=== PATIENT | female | born 1950 | race Caucasian/White ===

== ENCOUNTER 2017-06-23 13:37 | Emergency (ER) | payer MEDICARE, MEDICAID ==
[~2017-06-23] VITALS: Ht 157.5 cm; Wt 65.0 kg
[2017-06-23] MEDS ORDERED: PROP10TA10 PO (13:47)
[2017-06-23] MEDS ORDERED: LOSA25TA12 PO (13:47)
[2017-06-23] MEDS ORDERED: ATOR10TA69 PO (13:47)
[2017-06-23] MEDS ORDERED: QUETIAPINE FUMARATE 100MG TABLET PO STA (17:19)
[2017-06-23 18:30] VITALS: BP 151/89
== END 2017-06-23 18:47 | disposition home or self-care (01) ==
LOC: ER 13:37
DX: I10 Essential (primary) hypertension (principal); E78.00 Pure hypercholesterolemia, unspecified; E03.9 Hypothyroidism, unspecified
CPT/HCPCS: 99283

== ENCOUNTER 2018-05-22 08:54 | Inpatient (IN) | payer MEDICARE, OTHER ==
[~2018-05-22] VITALS: Ht 154.9 cm; Wt 96.2 kg
[~2018-05-22 08:54] MED LIST: ATOR10TA69 PO; LOSA25TA12 PO; PROP10TA10 PO
[2018-05-22] MEDS ORDERED: SODIUM CHLORIDE 0.9% 500 ML IV ONE (10:12)
[2018-05-22 10:41] LABS: CLARITY URINE CLOUDY (CLEAR); COLOR URINE YELLOW (YELLOW); KETONES URINE NEGATIVE (NEGATIVE); LEUKOCYTE ESTERASE URINE 2+ (NEGATIVE); NITRITE URINE NEGATIVE (NEGATIVE); OCCULT BLOOD URINE 1+ (NEGATIVE); PROTEIN URINE NEGATIVE (NEGATIVE); SPECIFIC GRAVITY URINE 1.016 (1.005-1.030); UROBILINOGEN URINE 0.2 E.U./dL (0.2-1.0)
[2018-05-22 10:41] LABS: BASOPHILS % 0.8 % (0.0-2.0); EOSINOPHILS % 10.7 % (0.0-5.0); HEMOGLOBIN. 11.6 g/dL (12.0-16.0); LYMPHOCYTES % 24.7 % (20.0-50.0); MEAN CORPUSCULAR HEMOGLOBIN 27.6 pg (28.0-32.0); MEAN CORPUSCULAR VOLUME 85.6 fL (81.0-99.0); MEAN PLATELET VOLUME 8.5 fl (7.4-10.4); NEUTROPHILS % 56.8 % (40.0-76.0); PLATELET 144 x1000/uL (130-400); RED BLOOD CELL COUNT 4.21 mill/uL (4.2-5.4); RED CELL DISTRIBUTION WIDTH 16.9 % (11.6-14.6)
[2018-05-22 10:42] LABS: CHLORIDE 108 mEq/L (98-107)
[2018-05-22 10:45] LABS: PARTIAL THROMBOPLASTIN TIME 26.9 sec (23.4-31.0); PROTHROMBIN TIME 10.2 sec (9.1-11.1)
[2018-05-22 10:54] LABS: CREATINE KINASE 39 IU/L (26-192)
[2018-05-22 10:58] LABS: CREATINE KINASE MB FRACTION < 1.0 ng/mL (0.5-3.6)
[2018-05-22] MEDS ORDERED: NYSTATIN POWDER 15GM TOP STA (11:14)
[2018-05-22] MEDS ORDERED: FUROSEMIDE 20MG/2ML VIAL IVP ONE (11:15)
[2018-05-22] MEDS ORDERED: CEFTRIAXONE 1 G PREMIX 50 ML IV ONE (11:15)
[2018-05-22] MEDS ORDERED: ONDANSETRON HCL 4MG/2ML INJ IV PRN (11:45)
[2018-05-22 16:25] VITALS: BP 135/70
[2018-05-22] MEDS ORDERED: INFLUENZA VIRUS VACCINE(AFLURIA) 0.5ML SYR IM ONE (18:45)
[2018-05-22] MEDS ORDERED: PNEUMOCOCCAL 23-VAL P-SAC VAC 0.5 ML IM ONE (18:45)
[2018-05-22] MEDS: MECLIZINE 25MG TABLET PO PRN (18:52)
[2018-05-22 20:00] VITALS: BP 121/70
[2018-05-22] MEDS: ACETAMINOPHEN 325MG TABLET PO PRN (21:23)
[2018-05-22] MEDS: AMLODIPINE 5MG TABLET PO SCH (21:24)
[2018-05-23] VITALS: BP 108/78
[2018-05-23 04:00] VITALS: BP 113/57
[2018-05-23 07:06] LABS: BASOPHILS % 1.1 % (0.0-2.0); HEMATOCRIT. 35.3 % (36.0-48.0); HEMOGLOBIN. 11.6 g/dL (12.0-16.0); LYMPHOCYTES % 27.6 % (20.0-50.0); MEAN CORPUSCULAR VOLUME 84.8 fL (81.0-99.0); MEAN PLATELET VOLUME 8.4 fl (7.4-10.4); MONOCYTES % 9.3 % (2.0-8.0); PLATELET 150 x1000/uL (130-400); RED BLOOD CELL COUNT 4.16 mill/uL (4.2-5.4); RED CELL DISTRIBUTION WIDTH 16.8 % (11.6-14.6)
[2018-05-23 08:00] VITALS: BP 128/71
[2018-05-23] MEDS: LEVOTHYROXINE SODIUM 50MCG TABLET PO SCH (09:16)
[2018-05-23] MEDS: AMLODIPINE 5MG TABLET PO SCH ×2 (09:16→20:09)
[2018-05-23] MEDS ORDERED: CEFTRIAXONE 1 G PREMIX 50 ML IV SCH (11:00)
[2018-05-23 12:00] VITALS: BP 138/73
[2018-05-23 16:00] VITALS: BP 148/69
[2018-05-23 18:41] LABS: T4 FREE 0.6 ng/dL (0.76-1.46)
[2018-05-23 20:00] VITALS: BP 124/55
[2018-05-24] VITALS: BP 117/69
[2018-05-24 04:00] VITALS: BP 118/68
[2018-05-24] MEDS: ACETAMINOPHEN 325MG TABLET PO PRN ×2 (06:24→22:42)
[2018-05-24 06:57] LABS: EOSINOPHILS % 6.7 % (0.0-5.0); HEMATOCRIT. 36.6 % (36.0-48.0); LYMPHOCYTES % 25.3 % (20.0-50.0); MEAN CORPUSCULAR HEMOGLOBIN 27.8 pg (28.0-32.0); MEAN CORPUSCULAR VOLUME 84.7 fL (81.0-99.0); MEAN PLATELET VOLUME 8.5 fl (7.4-10.4); PLATELET 177 x1000/uL (130-400); RED BLOOD CELL COUNT 4.32 mill/uL (4.2-5.4); RED CELL DISTRIBUTION WIDTH 16.5 % (11.6-14.6)
[2018-05-24 08:00] VITALS: BP 142/82
[2018-05-24] MEDS: LEVOTHYROXINE SODIUM 50MCG TABLET PO SCH (08:46)
[2018-05-24] MEDS: AMLODIPINE 5MG TABLET PO SCH ×2 (08:47→20:55)
[2018-05-24] MEDS: CEFTRIAXONE 1 G PREMIX 50 ML IV SCH (11:36)
[2018-05-24 12:00] VITALS: BP 128/59
[2018-05-24 16:00] VITALS: BP 134/53
[2018-05-24 20:00] VITALS: BP 131/61
[2018-05-24] MEDS: MECLIZINE 25MG TABLET PO PRN (22:42)
[2018-05-25] VITALS: BP 132/67
[2018-05-25 04:00] VITALS: BP 114/73
[2018-05-25 08:00] VITALS: BP 129/78
[2018-05-25] MEDS: LEVOTHYROXINE SODIUM 50MCG TABLET PO SCH (09:04)
[2018-05-25] MEDS: AMLODIPINE 5MG TABLET PO SCH ×2 (09:05→21:44)
[2018-05-25] MEDS: CEFTRIAXONE 1 G PREMIX 50 ML IV SCH (10:47)
[2018-05-25 12:00] VITALS: BP 125/73
[2018-05-25] MEDS ORDERED: ENOXAPARIN 30MG/0.3ML SYR SUBCUT SCH (14:15)
[2018-05-25 16:43] LABS: BASOPHILS % 0.8 % (0.0-2.0); EOSINOPHILS % 7.8 % (0.0-5.0); HEMATOCRIT. 37.3 % (36.0-48.0); HEMOGLOBIN. 12.4 g/dL (12.0-16.0); LYMPHOCYTES % 26.1 % (20.0-50.0); MEAN CORPUSCULAR HEMOGLOBIN 28.1 pg (28.0-32.0); MEAN CORPUSCULAR VOLUME 84.9 fL (81.0-99.0); MEAN PLATELET VOLUME 8.3 fl (7.4-10.4); MONOCYTES % 8.5 % (2.0-8.0); NEUTROPHILS % 56.8 % (40.0-76.0); PLATELET 174 x1000/uL (130-400); RED CELL DISTRIBUTION WIDTH 16.8 % (11.6-14.6)
[2018-05-25 20:00] VITALS: BP 123/74
[2018-05-25] MEDS: HYDROCORTISONE 1% RECTAL CREAM 30GM PR SCH (21:00)
[2018-05-25] MEDS: MECLIZINE 25MG TABLET PO PRN (21:44)
[2018-05-25] MEDS: ACETAMINOPHEN 325MG TABLET PO PRN (21:45)
[2018-05-25] MEDS: NITROFURANTOIN 100MG M/M CAPSULE PO SCH (21:45)
[2018-05-26 00:08] VITALS: BP 139/72
[2018-05-26 04:00] VITALS: BP 128/76
[2018-05-26] MEDS: ENOXAPARIN 30MG/0.3ML SYR SUBCUT SCH ×2 (06:25→18:13)
[2018-05-26 08:00] VITALS: BP 126/75
[2018-05-26 08:21] LABS: EOSINOPHILS % 10.3 % (0.0-5.0); HEMATOCRIT. 36.5 % (36.0-48.0); HEMOGLOBIN. 12.1 g/dL (12.0-16.0); MEAN CORPUSCULAR HEMOGLOBIN 28.1 pg (28.0-32.0); MEAN CORPUSCULAR VOLUME 84.5 fL (81.0-99.0); MEAN PLATELET VOLUME 8.2 fl (7.4-10.4); NEUTROPHILS % 49.7 % (40.0-76.0); PLATELET 184 x1000/uL (130-400); RED BLOOD CELL COUNT 4.32 mill/uL (4.2-5.4); RED CELL DISTRIBUTION WIDTH 16.8 % (11.6-14.6)
[2018-05-26] MEDS: NITROFURANTOIN 100MG M/M CAPSULE PO SCH ×2 (08:50→20:14)
[2018-05-26] MEDS: LEVOTHYROXINE SODIUM 50MCG TABLET PO SCH (08:50)
[2018-05-26] MEDS: HYDROCORTISONE 1% RECTAL CREAM 30GM PR SCH ×2 (08:50→20:14)
[2018-05-26] MEDS: AMLODIPINE 5MG TABLET PO SCH ×2 (08:50→20:14)
[2018-05-26] MEDS: CEFTRIAXONE 1,000 MG in DEXTROSE 5% WATER 50 ML IV SCH (11:00)
[2018-05-26 12:00] VITALS: BP 131/77
[2018-05-26] MEDS: CLOTRIMAZOLE 1% CREAM 30GM TOP SCH ×2 (15:58→22:47)
[2018-05-26 16:00] VITALS: BP 135/76
[2018-05-26 20:00] VITALS: BP 134/73
[2018-05-26] MEDS: MECLIZINE 25MG TABLET PO PRN (22:07)
[2018-05-26] MEDS: ACETAMINOPHEN 325MG TABLET PO PRN (22:47)
[2018-05-27] VITALS: BP 148/70
[2018-05-27 04:00] VITALS: BP 118/78
[2018-05-27] MEDS: ENOXAPARIN 30MG/0.3ML SYR SUBCUT SCH ×2 (05:37→18:37)
[2018-05-27 07:18] LABS: BASOPHILS % 1.3 % (0.0-2.0); EOSINOPHILS % 9.4 % (0.0-5.0); HEMATOCRIT. 33.7 % (36.0-48.0); HEMOGLOBIN. 11.1 g/dL (12.0-16.0); LYMPHOCYTES % 29.1 % (20.0-50.0); MEAN CORPUSCULAR HEMOGLOBIN 28.1 pg (28.0-32.0); MEAN CORPUSCULAR VOLUME 85.3 fL (81.0-99.0); MEAN PLATELET VOLUME 8.3 fl (7.4-10.4); MONOCYTES % 11.7 % (2.0-8.0); NEUTROPHILS % 48.5 % (40.0-76.0); PLATELET 142 x1000/uL (130-400); RED BLOOD CELL COUNT 3.95 mill/uL (4.2-5.4); RED CELL DISTRIBUTION WIDTH 16.7 % (11.6-14.6)
[2018-05-27 08:00] VITALS: BP 134/75
[2018-05-27] MEDS: AMLODIPINE 5MG TABLET PO SCH ×2 (08:22→20:59)
[2018-05-27] MEDS: NITROFURANTOIN 100MG M/M CAPSULE PO SCH ×2 (08:22→20:58)
[2018-05-27] MEDS: HYDROCORTISONE 1% RECTAL CREAM 30GM PR SCH ×2 (08:22→20:59)
[2018-05-27] MEDS: LEVOTHYROXINE SODIUM 50MCG TABLET PO SCH (08:22)
[2018-05-27] MEDS: CLOTRIMAZOLE 1% CREAM 30GM TOP SCH ×2 (08:22→20:58)
[2018-05-27] MEDS: ACETAMINOPHEN 325MG TABLET PO PRN (08:28)
[2018-05-27] MEDS: CEFTRIAXONE 1,000 MG in DEXTROSE 5% WATER 50 ML IV SCH (11:00)
[2018-05-27 12:00] VITALS: BP 127/97
[2018-05-27 16:00] VITALS: BP 127/74
[2018-05-27] MEDS ORDERED: POTASSIUM CHLORIDE 20MEQ TABLET SR PO NR (16:00)
[2018-05-27 17:28] LABS: PHOSPHORUS 3.6 mg/dL (2.5-4.9)
[2018-05-27 20:00] VITALS: BP 117/72
[2018-05-28 04:00] VITALS: BP 105/59
[2018-05-28] MEDS: ENOXAPARIN 30MG/0.3ML SYR SUBCUT SCH ×2 (05:30→17:06)
[2018-05-28 07:10] LABS: BASOPHILS % 1.2 % (0.0-2.0); EOSINOPHILS % 8.5 % (0.0-5.0); HEMATOCRIT. 33.2 % (36.0-48.0); HEMOGLOBIN. 11.1 g/dL (12.0-16.0); LYMPHOCYTES % 33.9 % (20.0-50.0); MEAN CORPUSCULAR HEMOGLOBIN 28.4 pg (28.0-32.0); MEAN CORPUSCULAR VOLUME 85.4 fL (81.0-99.0); MEAN PLATELET VOLUME 8.6 fl (7.4-10.4); MONOCYTES % 12.8 % (2.0-8.0); NEUTROPHILS % 43.6 % (40.0-76.0); PLATELET 151 x1000/uL (130-400); RED BLOOD CELL COUNT 3.88 mill/uL (4.2-5.4)
[2018-05-28 08:00] VITALS: BP 121/70
[2018-05-28] MEDS: NITROFURANTOIN 100MG M/M CAPSULE PO SCH (08:38)
[2018-05-28] MEDS: CLOTRIMAZOLE 1% CREAM 30GM TOP SCH ×2 (08:38→21:52)
[2018-05-28] MEDS: LEVOTHYROXINE SODIUM 50MCG TABLET PO SCH (08:38)
[2018-05-28] MEDS: AMLODIPINE 5MG TABLET PO SCH ×2 (08:48→21:52)
[2018-05-28] MEDS: HYDROCORTISONE 1% RECTAL CREAM 30GM PR SCH ×2 (09:00→21:53)
[2018-05-28 10:23] LABS: BASOPHILS % 1.4 % (0.0-2.0); EOSINOPHILS % 7.2 % (0.0-5.0); HEMATOCRIT. 36.3 % (36.0-48.0); HEMOGLOBIN. 11.7 g/dL (12.0-16.0); LYMPHOCYTES % 33.8 % (20.0-50.0); MEAN CORPUSCULAR HEMOGLOBIN 27.7 pg (28.0-32.0); MEAN CORPUSCULAR VOLUME 86.4 fL (81.0-99.0); MEAN PLATELET VOLUME 8.5 fl (7.4-10.4); MONOCYTES % 12.2 % (2.0-8.0); NEUTROPHILS % 45.4 % (40.0-76.0); PLATELET 153 x1000/uL (130-400); RED BLOOD CELL COUNT 4.21 mill/uL (4.2-5.4); RED CELL DISTRIBUTION WIDTH 17.3 % (11.6-14.6)
[2018-05-28] MEDS: CEFTRIAXONE 1,000 MG in DEXTROSE 5% WATER 50 ML IV SCH (11:00)
[2018-05-28 12:00] VITALS: BP 118/76
[2018-05-28 16:00] VITALS: BP 128/62
[2018-05-28 20:00] VITALS: BP 117/59
[2018-05-28] MEDS: ACETAMINOPHEN 325MG TABLET PO PRN (23:23)
[2018-05-29] VITALS: BP 122/68
[2018-05-29 04:00] VITALS: BP 102/55
[2018-05-29] MEDS: ENOXAPARIN 30MG/0.3ML SYR SUBCUT SCH ×2 (05:43→16:47)
[2018-05-29 07:59] VITALS: BP 134/60
[2018-05-29] MEDS: LEVOTHYROXINE SODIUM 50MCG TABLET PO SCH (08:32)
[2018-05-29] MEDS: AMLODIPINE 5MG TABLET PO SCH ×2 (08:32→20:34)
[2018-05-29] MEDS: CLOTRIMAZOLE 1% CREAM 30GM TOP SCH ×2 (08:33→21:39)
[2018-05-29] MEDS: HYDROCORTISONE 1% RECTAL CREAM 30GM PR SCH ×2 (08:34→21:39)
[2018-05-29 12:00] VITALS: BP 107/61
[2018-05-29 16:00] VITALS: BP 124/76
[2018-05-29 20:00] VITALS: BP 115/51
[2018-05-29] MEDS: CETIRIZINE 10MG TABLET PO SCH (21:38)
[2018-05-30] VITALS: BP 134/79
[2018-05-30] MEDS: ENOXAPARIN 30MG/0.3ML SYR SUBCUT SCH (05:08)
[2018-05-30 08:00] VITALS: BP 118/73
[2018-05-30] MEDS: AMLODIPINE 5MG TABLET PO SCH (08:41)
[2018-05-30] MEDS: CETIRIZINE 10MG TABLET PO SCH (08:41)
[2018-05-30] MEDS: LEVOTHYROXINE SODIUM 50MCG TABLET PO SCH (08:41)
[2018-05-30] MEDS: HYDROCORTISONE 1% RECTAL CREAM 30GM PR SCH (09:00)
[2018-05-30] MEDS ORDERED: CLOT15CR2 TOP (14:44)
[2018-05-30] MEDS ORDERED: AMLO5TAB88 PO (14:44)
[2018-05-30] MEDS ORDERED: CETI10TA6 PO (14:44)
[2018-05-30] MEDS ORDERED: LEVO50TA8 PO (14:44)
[2018-05-30] MEDS: CLOTRIMAZOLE 1% CREAM 30GM TOP SCH (16:51)
== END 2018-05-30 17:00 | disposition home or self-care (01) | DRG 194 ==
LOC: ER 09:06 → EDBEDREQ 10:16 → ENRESERV 11:57 → 7WST 15:19
PROVIDERS: ADMIT Internal Medicine; ATTEND Internal Medicine
DX: I13.0 Hypertensive heart and chronic kidney disease with heart failure and stage 1 through stage 4 chronic kidney disease, or unspecified chronic kidney disease (principal); E87.8 Other disorders of electrolyte and fluid balance, not elsewhere classified; G20 Parkinson's disease; F20.9 Schizophrenia, unspecified; I07.1 Rheumatic tricuspid insufficiency; Z68.41 Body mass index [BMI] 40.0-44.9, adult; G90.8 Other disorders of autonomic nervous system; I50.31 Acute diastolic (congestive) heart failure; N39.0 Urinary tract infection, site not specified; E03.9 Hypothyroidism, unspecified; E66.9 Obesity, unspecified; N18.9 Chronic kidney disease, unspecified; E78.5 Hyperlipidemia, unspecified; D64.9 Anemia, unspecified; F03.90 Unspecified dementia, unspecified severity, without behavioral disturbance, psychotic disturbance, mood disturbance, and anxiety; H54.8 Legal blindness, as defined in USA; H26.9 Unspecified cataract; I27.20 Pulmonary hypertension, unspecified; J32.0 Chronic maxillary sinusitis; Z79.899 Other long term (current) drug therapy; Z71.3 Dietary counseling and surveillance
CPT/HCPCS: 36415; 71045; 80048; 80061; 82550; 82553; 82962; 83036; 83735; 83880; 84100; 84439; 84443; 84481; 84484; 90686; 90732; 93005; 93306; 93970; 96361; 96365; 96366; 96375; 97116; 97163; 99285; C1893; J0696; J1650; J1940; J7040; J7050; J7060; J8597